=== PATIENT | female | born 1980 | race Caucasian/White ===

== ENCOUNTER 2023-12-06 19:39 | Emergency (ER) | payer MEDICARE, MEDICAID, SELFPAY ==
--- NOTE | ~2023-12-06 | XR_ITS ---
EXAMINATION: XR HAND/WRIST, LEFT CLINICAL INFORMATION: Pain, decreased range of motion. COMPARISON: None TECHNIQUE: PA, lateral, and oblique views of the left hand and wrist. FINDINGS: The bones and soft tissues are normal. No fracture. Alignment is anatomic. Joint spaces are maintained. No erosions or soft tissue calcifications. XR/XR hand wrist LT IMPRESSION: Normal radiographs of the hand and wrist.
[2023-12-06 20:19] VITALS: BP 149/98; PULSE 109; RESP 18; O2SAT 96; BMI 27.1
--- NOTE | 2023-12-06 20:20 | ED_ITS ---
HPI - General Adult General Chief complaint: Extremity Problem Stated complaint: L arm pain/No inj Time Seen by Provider: 12/06/23 22:16 Source: patient, RN notes reviewed and old records reviewed Mode of arrival: ambulatory Limitations: no limitations History of Present Illness HPI narrative: 43-year-old female presents for evaluation of left wrist and hand pain. 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 ? Related Data Previous Rx's ?Medication ?Instructions ?Recorded gabapentin 300 mg capsule 300 mg PO DAILY #20 caps 12/06/23 naproxen 500 mg tablet 500 mg PO BID #20 tabs 12/06/23 Allergies Allergy/AdvReac Type Severity Reaction Status Date / Time azithromycin Allergy Rash Verified 12/06/23 20:27 Review of Systems 2 Constitutional: Constitutional: Denies body ache(s), Denies chills and Denies fever(s) ENT: Denies sore throat Cardiovascular: Cardiovascular: Denies chest pain and Denies dyspnea Respiratory: Respiratory: Denies cough and Denies dyspnea Gastrointestinal: Gastrointestinal: Denies abdominal pain, Denies nausea and Denies vomiting Musculoskeletal: Musculoskeletal: Reports arthralgias, Reports joint swelling and Reports limited range of motion Integumentary/Breasts: Skin/Breast: Denies rash PMFSH Social History Social History Advance Directives: No Advance Directives Information Provided: No Physical Exam ED Vital Signs: Vital Signs - 24 hr 12/06/23 20:19 12/06/23 22:39 12/06/23 22:58 Temperature 98.7 F 98.7 F Pulse Rate 109 H 89 89 Respiratory Rate 18 18 18 Blood Pressure 149/98 H 113/77 113/77 Pulse Oximetry 96 97 97 Oxygen Delivery Method Room Air Room Air Room Air BMI result Body Mass Index 27.1 Const General: healthy appearing, comfortable, no acute distress, alert and awake Nutritional Appearance: well nourished Orientation/consciousness: patient oriented x3 HENMT Head: Yes normocephalic and Yes atraumatic Eyes Eyelids: Yes eyelids normal Conjunctivae: conjunctivae normal Sclerae: sclerae normal Corneas: corneas normal Pupils: Equal, round and reactive pupils present EOM: EOMs intact bilaterally Neck Neck: Yes full ROM Resp Effort & Inspection: normal respiratory effort, able to speak in complete sentences and not labored Skin General skin exam: elasticity normal Neuro General: patient oriented x3 Cranial nerves: Yes Equal, round and reactive pupils present and Yes Bilaterally intact EOM present Cognition (Neuro): normal cognition Extrem Other: Patient has tenderness to the entire left wrist dorsal and ventral surface. No obvious deformity. Positive Tinel test. She has good range of motion with flexion of all fingers of the left hand. Course Course Course Narrative: This is an RME: Additional HPI, ROS, PE not included below will be deferred to primary provider. Patient is a 43-year-old female reports hx syrinx at C4, melodie danlos syndromepresenting to emergency department for evaluation Pain to left hand/wrist, primarily the ulnar aspect radiating up her arm. Described as severe in nature. Unable to her wrist. at times pain radiates into L shoulder and neck, denies at this time. Also having chest tightness. Pain is unrelieved with acetaminophen/ibuprofen. Denies any injury. Denies any fevers or chills. Reevaluation(s) Reevaluation #1: Patient's workup largely unremarkable, most likely diagnosis is carpal tunnel syndrome. Patient be referred to hand surgery. She will be treated conservatively Time: 23:34 Medications Administered Discontinued Medications Generic Name Dose Route Start Last Admin Trade Name Gurjit PRN Reason Stop Dose Admin Ketorolac Tromethamine 30 mg 12/06/23 22:34 12/06/23 22:56 Ketorolac Tromethamine 30 Mg/Ml Vial IM 12/06/23 22:35 30 mg ONCE ONE Administration Medical Decision Making Medical Decision Making MDM Narrative: 43-year-old female presents for evaluation of left hand and wrist pain. She has a positive Tinel test and a previous history of carpal tunnel. The most likely diagnosis at this time is carpal tunnel. She had an x-ray that showed no osseous abnormalities. There are no skin changes or signs of infectious process. I have a very low suspicion for cardiac disease. She had have a cardiac workup ordered in triage. Her EKG is nonischemic, troponin is negative. Differential Diagnosis Differential Diagnoses: The differential diagnosis associated with the presentation includes Right hand and wrist pain Carpal tunnel Take veins tenosynovitis Gout Hand sprain Fracture Lab Data MDM Lab Attestation statement: I reviewed the patient's lab results. No leukocytosis or anemia. No left shift. No significant electrolyte abnormalities. 12/06/23 20:32 12/06/23 20:32 Labs: Lab Results 12/06/23 Range/Units 20:32 WBC 10.7 (4.8-10.8) X10*3/uL RBC 4.54 (4.20-5.50) X10*6/uL Hgb 13.5 (12.0-16.0) g/dl Hct 39.9 (37.0-47.0) % MCV 87.9 (80.0-98.0) fL MCH 29.7 (27.0-33.0) pg MCHC 33.8 (31.0-35.0) g/dl RDW 12.4 (11.0-16.0) % Plt Count 494 H (160-400) X10*3/uL MPV 8.5 L (9.4-12.3) fL Immature Gran % (Auto) 0.2 (0.0-0.4) % Neut % (Auto) 55.3 (45-73) % Lymph % (Auto) 36.0 (20-40) % [place] % (Auto) 6.6 (2-11) % Eos % (Auto) 1.3 (0-4) % Baso % (Auto) 0.6 (0-2) % Lymph # (Auto) 3.9 (1.2-4.9) X10*3/uL [place] # (Auto) 0.7 (0.1-1.2) X10*3/uL Eos # (Auto) 0.1 (0.0-0.4) X10*3/uL Baso # (Auto) 0.1 (0.0-0.2) X10*3/uL Abs Immat Gran (auto) 0.02 (0.00-0.03) X10*3/uL Absolute Neuts (auto) 5.9 (2.0-8.3) x10*3/uL Absolute Nucleated RBC 0.000 (0.0-0.012) X10*3/uL Nucleated RBC % (auto) 0.0 (0.0-0.2) /100WBC Sodium 137 (135-145) mmol/L Potassium 4.1 (3.3-5.1) mmol/L Chloride 105 (96-108) mmol/L Carbon Dioxide 23 (22-29) mmol/L Anion Gap 13 (12-20) BUN 7 L (9-16) mg/dL Creatinine 0.64 (0.5-1.4) mg/dL Estim Creat Clear Calc 93.9 Estimated GFR > 60 Random Glucose 94 (60-115) mg/dL Calcium 9.1 (8.4-10.2) mg/dL Total Bilirubin 0.2 (0.0-1.0) mg/dL AST 13 (5-31) U/L ALT 8 (0-31) U/L Alkaline Phosphatase 54 (39-117) U/L Troponin I High Sens < 2.7 (<3.5-17.0) ng/L Total Protein 7.5 (6.5-8.0) g/dL Albumin 4.0 (3.5-5.0) g/dL Independent Interpretation I performed an independent interpretation of an: EKG and Plain X-Ray (No obvious fracture of the right hand and wrist) Interpretation: Sinus tachycardia rate of [address] segment changes Radiology Impression Discussion of test interpretation with radiology: I have reviewed the radiologist's reading. Radiologist Impression: IMPRESSION: Normal radiographs of the hand and wrist. Discharge Plan Discharge Clinical Impression: Left hand pain Patient Disposition: Home, Self-Care Instructions: Arthralgia (ED) Additional Instructions: Your workup in the ER did not show any concerning abnormality. Your physical exam is most concerning for carpal tunnel syndrome You may wear the splint as needed/tolerated I recommend that you follow-up with Dr. Antoinette Xiong, hand surgery Use naproxen as needed for pain You may use Gabapentin as needed for nerve pain Prescriptions: New naproxen 500 mg tablet 500 mg PO BID Qty: 20 0RF gabapentin 300 mg capsule 300 mg PO DAILY Qty: 20 0RF Referrals: Antoinette Xiong MD [Physician] - (? carpal tunnel left hand) Interventions: ED Discharge Assessment Last Done: 12/06/23 22:58 Print Language: Colombian
--- NOTE | 2023-12-06 20:26 | ECG_ITS ---
Test Reason : CHEST TIGHTNESS Blood Pressure : / mmHG Vent. Rate : 106 BPM Atrial Rate : 106 BPM P-R Int : 134 ms QRS Dur : 084 ms QT Int : 344 ms P-R-T Axes : 051 -16 072 degrees QTc Int : 456 ms Sinus tachycardia Otherwise normal ECG No previous ECGs available Referred By: Alana Messer Electronically Signed By:Mahamed Jaquez
[2023-12-06 20:38] LABS: MANUAL DIFF FLAG NO
[2023-12-06 20:39] LABS: Basophils Absolute Auto 0.1 X10*3/uL (0.0-0.2); Basophils Percent Auto 0.6 % (0-2); Eosinophils Absolute Auto 0.1 X10*3/uL (0.0-0.4); Eosinophils Percent Auto 1.3 % (0-4); Hematocrit 39.9 % (37.0-47.0); Hemoglobin 13.5 g/dl (12.0-16.0); Imm Gran Abs Auto 0.02 X10*3/uL (0.00-0.03); Imm Gran Pct Auto 0.2 % (0.0-0.4); Lymphocytes Absolute Auto 3.9 X10*3/uL (1.2-4.9); Mean Corpuscular HGB Conc 33.8 g/dl (31.0-35.0); Mean Corpuscular Hemoglobin 29.7 pg (27.0-33.0); Mean Corpuscular Volume 87.9 fL (80.0-98.0); Mean Platelet Volume 8.5 fL (9.4-12.3); Monocytes Absolute Auto 0.7 X10*3/uL (0.1-1.2); Monocytes Percent Auto 6.6 % (2-11); Neutrophils Absolute Auto 5.9 x10*3/uL (2.0-8.3); Neutrophils Percent Auto 55.3 % (45-73); Platelet Count 494 X10*3/uL (160-400); Red Blood Count 4.54 X10*6/uL (4.20-5.50); Red Cell Distribution Width 12.4 % (11.0-16.0); White Blood Count 10.7 X10*3/uL (4.8-10.8)
[2023-12-06 20:54] LABS: Alanine Aminotransferase 8 U/L (0-31); Alkaline Phosphatase 54 U/L (39-117); Anion Gap 13 (12-20); Aspartate Amino Transferase 13 U/L (5-31); Bilirubin Total 0.2 mg/dL (0.0-1.0); Blood Urea Nitrogen 7 mg/dL (9-16); Calcium 9.1 mg/dL (8.4-10.2); Carbon Dioxide 23 mmol/L (22-29); Chloride 105 mmol/L (96-108); Creatinine Clr Calc Pharmacy 93.9; Estimated Glomerular Filt Rate > 60; Glucose Random 94 mg/dL (60-115); Potassium 4.1 mmol/L (3.3-5.1); Sodium 137 mmol/L (135-145); Total Protein 7.5 g/dL (6.5-8.0)
[2023-12-06 21:03] LABS: Troponin-I High Sensitivity < 2.7 ng/L (<3.5-17.0)
[2023-12-06 22:39] VITALS: BP 113/77; PULSE 89; RESP 18; TEMP 37.1; O2SAT 97
[2023-12-06] MEDS: Ketorolac Tromethamine 30 MG/ML VIAL IM (22:56)
[2023-12-06 22:58] VITALS: BP 113/77; PULSE 89; RESP 18; TEMP 37.1; O2SAT 97
--- NOTE | 2023-12-06 23:24 | MHC.EDTECH ---
Wrist splint applied per PA order. Pt tolerated well.
== END 2023-12-06 23:00 | disposition home or self-care (01) ==
PROVIDERS: Nurse Practitioner Family; Emergency Provider Student in an Organized Health Care Education/Training Program
DX: M79.642 Pain in left hand (principal); M25.532 Pain in left wrist
CPT/HCPCS: 36415; 73110; 73130; 80053; 84484; 85025; 93005; 96372; 99284; J1885

== ENCOUNTER → 2023-12-06 20:26 | Outpatient (BNV) | payer MEDICARE, MEDICAID, SELFPAY | PROVIDERS: Emergency Provider Student in an Organized Health Care Education/Training Program; Visit Provider Internal Medicine Cardiovascular Disease | DX: R00.0 Tachycardia, unspecified (principal) | CPT/HCPCS: 93010 ==

== ENCOUNTER 2024-01-15 15:55 | Emergency (ER) | payer MEDICARE, MEDICAID, SELFPAY ==
[2024-01-15 16:03] VITALS: BP 147/93; PULSE 109; RESP 18; TEMP 36.9; O2SAT 97; BMI 25.6
--- NOTE | 2024-01-15 16:05 | ED_ITS ---
HPI - General Adult General Chief complaint: Abdominal Pain Stated complaint: abd hernai/pain with nauseau Time Seen by Provider: 01/15/24 23:17 Source: patient Mode of arrival: ambulatory Limitations: no limitations History of Present Illness ED Provider: dr tamez HPI narrative: Patient's history of ventral hernia for years comes here for pain in the lower abdomen after pushing dry stone few weeks ago no vomiting does have constipation and last good bowel movement was few days ago no fever no chills no urinary complaints has a normal appetite Related Data Previous Rx's ?Medication ?Instructions ?Recorded gabapentin 300 mg capsule 300 mg PO DAILY #20 caps 12/06/23 naproxen 500 mg tablet 500 mg PO BID #20 tabs 12/06/23 bisacodyl 5 mg tablet,delayed 5 mg PO BEDTIME PRN constipation 01/16/24 release (Dulcolax (bisacodyl)) #30 tabs polyethylene glycol 3350 17 17 g PO DAILY #510 grams 01/16/24 gram/dose oral powder (Miralax) Allergies Allergy/AdvReac Type Severity Reaction Status Date / Time azithromycin Allergy Rash Verified 01/15/24 16:06 Review of Systems 2 Review of Systems: Yes all other systems are reviewed and are negative PMFSH Social History Social History Advance Directives: No Advance Directives Information Provided: No Do you have a plan to hurt others: No Plan Patient : No Physical Exam ED Vital Signs: Vital Signs - 24 hr 01/15/24 16:03 01/15/24 22:38 Temperature 98.4 F 97.8 F Pulse Rate 109 H 80 Respiratory Rate 18 16 Blood Pressure 147/93 H 133/76 Pulse Oximetry 97 100 Oxygen Delivery Method Room Air Room Air BMI result Body Mass Index 25.6 Appearance: Alert. Oriented X3. No acute distress. Eyes: No pallor or icterus ENT: Pharynx normal. Oral Mucosa moist Neck: Normal inspection. Neck supple. CVS: Normal heart rate and rhythm. Pulses normal. Respiratory: No respiratory distress. Equal air entry bilateral, no wheezing/rales/rhonchi Abdomen: Soft , deep tenderness left lower abdomen, small ventral hernia containing fat mild tenderness, Bowel sounds are present, no mass palpable, no CVA tenderness Skin: Skin warm and dry. Normal skin color. Normal skin turgor. Extremities: No lower extremity edema. No calf tenderness Neuro: Oriented X 3. No motor deficit. Course Course Course Narrative: RME- 43-year-old female presents for evaluation of abdominal pain, nausea. She reports that she has a known ?hernia. She indicates her epigastric region. She states that 2 weeks ago while pushing down on a trash bag she felt ?a tearing sensation in my midabdomen. ? 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 Plan for workup including labs, EKG. Will defer any potential imaging to primary provider Medical Decision Making Medical Decision Making [facility] Narrative: Patient with small fat containing ventral hernia which been stable in size no significant tenderness noticed. Patient does have deep tenderness in left lower abdomen and does have constipation labs are normal likely the cause patient refused on imaging will discharge patient relax Lab Data [facility] Lab Attestation statement: I reviewed the patient's lab results. 01/15/24 16:39 01/15/24 16:39 Labs: Lab Results 01/15/24 01/15/24 Range/Units 16:39 18:29 WBC 9.0 (4.8-10.8) X10*3/uL RBC 4.57 (4.20-5.50) X10*6/uL Hgb 13.9 (12.0-16.0) g/dl Hct 41.6 (37.0-47.0) % MCV 91.0 (80.0-98.0) fL MCH 30.4 (27.0-33.0) pg MCHC 33.4 (31.0-35.0) g/dl RDW 12.6 (11.0-16.0) % Plt Count 493 H (160-400) X10*3/uL MPV 8.7 L (9.4-12.3) fL Immature Gran % (Auto) 0.2 (0.0-0.4) % Neut % (Auto) 46.0 (45-73) % Lymph % (Auto) 43.5 H (20-40) % [place] % (Auto) 7.9 (2-11) % Eos % (Auto) 1.8 (0-4) % Baso % (Auto) 0.0 (0-2) % Lymph # (Auto) 3.9 (1.2-4.9) X10*3/uL [place] # (Auto) 0.7 (0.1-1.2) X10*3/uL Eos # (Auto) 0.2 (0.0-0.4) X10*3/uL Baso # (Auto) 0.1 (0.0-0.2) X10*3/uL Abs Immat Gran (auto) 0.02 (0.00-0.03) X10*3/uL Absolute Neuts (auto) 4.1 (2.0-8.3) x10*3/uL Absolute Nucleated RBC 0.000 (0.0-0.012) X10*3/uL Nucleated RBC % (auto) 0.0 (0.0-0.2) /100WBC PT 10.3 L (11.1-13.3) SEC INR 0.8 L (0.9-1.1) Sodium 139 (135-145) mmol/L Potassium 4.5 (3.3-5.1) mmol/L Chloride 107 (96-108) mmol/L Carbon Dioxide 22 (22-29) mmol/L Anion Gap 15 (12-20) BUN 12 (9-16) mg/dL Creatinine 0.78 (0.5-1.4) mg/dL Estim Creat Clear Calc 78.2 Estimated GFR > 60 Random Glucose 95 (60-115) mg/dL Calcium 9.5 (8.4-10.2) mg/dL Total Bilirubin 0.2 (0.0-1.0) mg/dL AST 13 (5-31) U/L ALT 9 (0-31) U/L Alkaline Phosphatase 54 (39-117) U/L Troponin I High Sens < 2.7 (<3.5-17.0) ng/L Total Protein 7.6 (6.5-8.0) g/dL Albumin 4.0 (3.5-5.0) g/dL Lipase 21 (8-78) U/L Beta HCG, Quant < 2 mIU/mL Urine Color Dark Yellow Urine Appearance Clear Urine pH 5.0 (5.0-9.0) Ur Specific [place] >= 1.030 H (1.005-1.025) Urine Protein Trace (Neg-Trace) mg/dL Urine Glucose (UA) Negative (Negative) mg/dL Urine Ketones Trace (Negative) mg/dL Urine Blood Negative (Negative) Urine Nitrite Negative (Negative) Ur Leukocyte Esterase Negative (Negative) Urine RBC 11-20 H (0-2) /HPF Urine WBC 0-5 (0-5) /HPF Ur Squamous Epith Cells 0-2 (0-2) /HPF Urine Bacteria None Seen (None Seen) Hyaline Casts 0-2 (0-2) /LPF Discharge Plan Discharge Clinical Impression: Constipation, Abdominal pain Patient Disposition: Home, Self-Care Instructions: Constipation (ED), Ventral Hernia (ED) Additional Instructions: Drink plenty of fluids Take medicine for constipation as prescribed Avoid lifting heavy weight Follow-up with surgery for hernia repair Report to ER if worsening of the swelling or pain in the hernia site Prescriptions: New polyethylene glycol 3350 [Miralax] 17 gram/dose powder 17 g PO DAILY Qty: 510 0RF bisacodyl [Dulcolax (bisacodyl)] 5 mg tablet,delayed release (DR/EC) 5 mg PO BEDTIME PRN (Reason: constipation) Qty: 30 0RF No Action naproxen 500 mg tablet 500 mg PO BID Qty: 20 0RF gabapentin 300 mg capsule 300 mg PO DAILY Qty: 20 0RF Referrals: Bryson Flores MD [Physician] - 2 weeks Print Language: Haitian
--- NOTE | 2024-01-15 16:05 | ECG_ITS ---
Test Reason : ABD PAIN Blood Pressure : / mmHG Vent. Rate : 093 BPM Atrial Rate : 093 BPM P-R Int : 120 ms QRS Dur : 076 ms QT Int : 360 ms P-R-T Axes : 065 053 065 degrees QTc Int : 447 ms Normal sinus rhythm Normal ECG When compared with ECG of 06-DEC-2023 20:28, No significant change was found Referred By: Juan Major Electronically Signed By:SIDNEY HINTON MD
[2024-01-15 16:44] LABS: MANUAL DIFF FLAG NO
[2024-01-15 17:22] LABS: Hematocrit 41.6 % (37.0-47.0); Hemoglobin 13.9 g/dl (12.0-16.0); Mean Corpuscular HGB Conc 33.4 g/dl (31.0-35.0); Mean Corpuscular Hemoglobin 30.4 pg (27.0-33.0); Red Blood Count 4.57 X10*6/uL (4.20-5.50)
[2024-01-15 17:23] LABS: Basophils Absolute Auto 0.1 X10*3/uL (0.0-0.2); Eosinophils Absolute Auto 0.2 X10*3/uL (0.0-0.4); Eosinophils Percent Auto 1.8 % (0-4); Imm Gran Abs Auto 0.02 X10*3/uL (0.00-0.03); Imm Gran Pct Auto 0.2 % (0.0-0.4); Lymphocytes Absolute Auto 3.9 X10*3/uL (1.2-4.9); Lymphocytes Percent Auto 43.5 % (20-40); Mean Platelet Volume 8.7 fL (9.4-12.3); Monocytes Absolute Auto 0.7 X10*3/uL (0.1-1.2); Monocytes Percent Auto 7.9 % (2-11); Neutrophils Absolute Auto 4.1 x10*3/uL (2.0-8.3); Platelet Count 493 X10*3/uL (160-400); Red Cell Distribution Width 12.6 % (11.0-16.0)
[2024-01-15 17:45] LABS: INTERNATIONAL NORM RATIO 0.8 (0.9-1.1); Prothrombin Time 10.3 SEC (11.1-13.3)
[2024-01-15 17:48] LABS: Alanine Aminotransferase 9 U/L (0-31); Alkaline Phosphatase 54 U/L (39-117); Anion Gap 15 (12-20); Aspartate Amino Transferase 13 U/L (5-31); Bilirubin Total 0.2 mg/dL (0.0-1.0); Blood Urea Nitrogen 12 mg/dL (9-16); Calcium 9.5 mg/dL (8.4-10.2); Carbon Dioxide 22 mmol/L (22-29); Chloride 107 mmol/L (96-108); Creatinine Clr Calc Pharmacy 78.2; Estimated Glomerular Filt Rate > 60; Glucose Random 95 mg/dL (60-115); HCG Quantitative < 2 mIU/mL; Lipase 21 U/L (8-78); Potassium 4.5 mmol/L (3.3-5.1); Sodium 139 mmol/L (135-145); Total Protein 7.6 g/dL (6.5-8.0)
[2024-01-15 17:49] LABS: Troponin-I High Sensitivity < 2.7 ng/L (<3.5-17.0)
[2024-01-15 18:59] LABS: Appearance Urine Clear; Color Urine Dark Yellow; Glucose Urine UA Negative (Negative); Leukocyte Esterase Urine Negative (Negative); Nitrite Urine Negative (Negative); Specific Gravity - Urine >= 1.030 (1.005-1.025); Urine Blood Negative (Negative); Urine Ketones Trace mg/dL (Negative); Urine Protein Trace mg/dL (Neg-Trace)
[2024-01-15 19:13] LABS: Bacteria Urine None Seen (None Seen); Hyaline Casts Urine 0-2 /LPF (0-2); Squamous Epithelial Cell Urine 0-2 /HPF (0-2); WBC Urine 0-5 /HPF (0-5)
[2024-01-15 22:38] VITALS: BP 133/76; PULSE 80; RESP 16; TEMP 36.6; O2SAT 100
[2024-01-16 00:09] VITALS: BP 130/82; PULSE 86; RESP 16; TEMP 36.8; O2SAT 99
== END 2024-01-16 00:10 | disposition home or self-care (01) ==
PROVIDERS: Physician Assistant; Emergency Provider Internal Medicine
DX: R10.30 Lower abdominal pain, unspecified (principal); K59.00 Constipation, unspecified
CPT/HCPCS: 36415; 80053; 81001; 83690; 84484; 84702; 85025; 85610; 93005; 99283; 99284

== ENCOUNTER → 2024-01-15 16:05 | Outpatient (BNV) | payer MEDICARE, MEDICAID, SELFPAY | PROVIDERS: Emergency Provider Internal Medicine; Visit Provider Internal Medicine Cardiovascular Disease | DX: R10.9 Unspecified abdominal pain (principal) | CPT/HCPCS: 93010 ==

== ENCOUNTER 2024-09-21 19:40 | Emergency (ER) | payer MEDICARE, MEDICAID, SELFPAY ==
--- NOTE | ~2024-09-21 | CT_ITS ---
CLINICAL HISTORY: blurry vision CT head without contrast Comparison: None Findings: No intra-axial mass, midline shift, hydrocephalus, or acute hemorrhage. No significant atrophy-like change or white matter disease. The visualized paranasal sinuses and mastoid air cells are normal. The orbits are within normal limits. There is no acute fracture. IMPRESSION: 1. No acute intracranial findings. This document has been electronically signed by: Eder Lew MD on 09/21/2024 21:48:35
--- NOTE | ~2024-09-21 | XR_ITS ---
CLINICAL HISTORY: blurry vision 2 view chest x-ray. Comparison: None Findings: Lungs are clear without acute infiltrates. No pneumothorax. Heart size normal. No acute bony abnormalities. Impression: No acute processes This document has been electronically signed by: Sarabjit Brown MD on 09/21/2024 21:09:45
[2024-09-21 19:45] VITALS: BP 146/91; PULSE 118; RESP 16; TEMP 37.4; O2SAT 98; BMI 24.4
--- NOTE | 2024-09-21 19:49 | ED_ITS ---
HPI - General Adult General Chief complaint: Dizziness Stated complaint: congested cough, sob antibiotics not working Time Seen by Provider: 09/21/24 22:42 Source: patient Limitations: no limitations History of Present Illness ED Provider: Meena Rich PA-C Related Data Previous Rx's ?Medication ?Instructions ?Recorded gabapentin 300 mg capsule 300 mg PO DAILY #20 caps 12/06/23 naproxen 500 mg tablet 500 mg PO BID #20 tabs 12/06/23 bisacodyl 5 mg tablet,delayed 5 mg PO BEDTIME PRN constipation 01/16/24 release (Dulcolax (bisacodyl)) #30 tabs polyethylene glycol 3350 17 17 g PO DAILY #510 grams 01/16/24 gram/dose oral powder (Miralax) meclizine 25 mg tablet 25 mg PO TID PRN dizziness #10 tabs 09/22/24 Allergies Allergy/AdvReac Type Severity Reaction Status Date / Time azithromycin Allergy Rash Verified 09/21/24 19:46 [facility] Social History Social History Smoked in Last 30 Days: Yes Use of substances other than those prescribed or required for medical reasons: No Advance Directives: No Advance Directives Information Provided: No Do you have a plan to hurt others: No Plan Physical Exam ED Vital Signs: Vital Signs - 24 hr 09/21/24 19:45 09/21/24 22:35 Temperature 99.4 F 101.7 F H Pulse Rate 118 H 109 H Respiratory Rate 16 20 Blood Pressure 146/91 H 115/77 Pulse Oximetry 98 97 Oxygen Delivery Method Room Air Room Air BMI result Body Mass Index 24.4 Course Course Course Narrative: RME performed by Shefali Canales PA-C. Patient is a 44 year old assigned female at presenting to the emergency department with blurry vision / vision changes, cough, and feeling generally unwell. Detailed physical exam and review of systems are deferred to the straw hat brim raiser operator. EKG, labs, imaging, and swabs ordered. Patient placed back in the waiting room pending room availability and results. Medications Administered Discontinued Medications Generic Name Dose Route Start Last Admin Trade Name Freq PRN Reason Stop Dose Admin Sodium Chloride 1,000 mls @ 999 mls/hr 09/21/24 23:15 01/27/25 23:34 Ns IV 09/22/24 00:15 999 mls/hr .Q1H1M BRISA Administration Ketorolac Tromethamine 15 mg 09/21/24 23:13 09/21/24 23:40 Ketorolac Tromethamine 15 Mg/Ml Vial IVPUSH 09/21/24 23:14 15 mg ONCE ONE Administration Meclizine HCl 25 mg 09/21/24 23:23 09/21/24 23:40 Meclizine Hcl 25 Mg Tablet PO 09/21/24 23:24 25 mg ONCE ONE Administration Medical Decision Making Lab Data 09/21/24 20:15 09/21/24 20:15 Labs: Lab Results 09/21/24 Range/Units 20:15 WBC 9.5 (4.8-10.8) X10*3/uL RBC 4.28 (4.20-5.50) X10*6/uL Hgb 12.9 (12.0-16.0) g/dl Hct 38.2 (37.0-47.0) % MCV 89.3 (80.0-98.0) fL MCH 30.1 (27.0-33.0) pg MCHC 33.8 (31.0-35.0) g/dl RDW 12.7 (11.0-16.0) % Plt Count 439 H (160-400) X10*3/uL MPV 8.5 L (9.4-12.3) fL Immature Gran % (Auto) 0.3 (0.0-0.4) % Neut % (Auto) 76.5 H (45-73) % Lymph % (Auto) 14.3 L (20-40) % [place] % (Auto) 8.2 (2-11) % Eos % (Auto) 0.3 (0-4) % Baso % (Auto) 0.4 (0-2) % Lymph # (Auto) 1.4 (1.2-4.9) X10*3/uL [place] # (Auto) 0.8 (0.1-1.2) X10*3/uL Eos # (Auto) 0.0 (0.0-0.4) X10*3/uL Baso # (Auto) 0.0 (0.0-0.2) X10*3/uL Abs Immat Gran (auto) 0.03 (0.00-0.03) X10*3/uL Absolute Neuts (auto) 7.3 (2.0-8.3) x10*3/uL Absolute Nucleated RBC 0.000 (0.0-0.012) X10*3/uL Nucleated RBC % (auto) 0.0 (0.0-0.2) /100WBC Sodium 135 (135-145) mmol/L Potassium 3.4 D (3.3-5.1) mmol/L Chloride 106 (96-108) mmol/L Carbon Dioxide 22 (22-29) mmol/L Anion Gap 10 L (12-20) BUN 10 (9-16) mg/dL Creatinine 0.73 (0.5-1.4) mg/dL Estim Creat Clear Calc 80.9 Estimated GFR > 60 Random Glucose 86 (60-115) mg/dL Calcium 8.4 D (8.4-10.2) mg/dL Magnesium 1.5 L (1.6-2.6) mg/dL Total Bilirubin 0.2 (0.0-1.0) mg/dL AST 19 (5-31) U/L ALT 12 (0-31) U/L Alkaline Phosphatase 59 (39-117) U/L Troponin I High Sens < 2.7 (<3.5-17.0) ng/L Total Protein 7.6 (6.5-8.0) g/dL Albumin 3.9 (3.5-5.0) g/dL Beta HCG, Quant < 2 mIU/mL Urine Color Yellow Urine Appearance Clear Urine pH 5.5 (5.0-9.0) Ur Specific [place] 1.025 (1.005-1.025) Urine Protein Negative (Neg-Trace) mg/dL Urine Glucose (UA) Negative (Negative) mg/dL Urine Ketones Trace (Negative) mg/dL Urine Blood Small (1+) H (Negative) Urine Nitrite Negative (Negative) Ur Leukocyte Esterase Negative (Negative) Urine RBC >20 H (0-2) /HPF Urine WBC 0-5 (0-5) /HPF Ur Squamous Epith Cells 0-2 (0-2) /HPF Urine Bacteria None Seen (None Seen) Hyaline Casts 0-2 (0-2) /LPF Influenza Type A (PCR) NEGATIVE (Negative) Influenza Type B (PCR) NEGATIVE (Negative) RSV RNA Qual (PCR) NEGATIVE (Negative) SARS-CoV-2 RNA (RT-PCR) POSITIVE A (Negative) Discharge Plan Discharge Clinical Impression: Dizziness, SARS-CoV-2 positive Patient Disposition: Home, Self-Care Instructions: Vertigo (ED), COVID-19 (Coronavirus Disease 2019) (ED) Additional Instructions: You were found to test positive for COVID. See home care instructions. The chest x-ray and the remainder of your labs were normal. The CT scan of your brain was normal. In regard to your dizziness, you have fluid within the inner ear triggering vertigo symptoms. See home care instructions. Use the meclizine as needed for dizziness. Use [id number] Zyrtec daily for a month, this will help alleviate the congestion within the inner ear, which is causing your dizziness. Follow up with your primary care provider as needed. Prescriptions: New meclizine 25 mg tablet 25 mg PO TID PRN (Reason: dizziness) Qty: 10 0RF No Action naproxen 500 mg tablet 500 mg PO BID Qty: 20 0RF gabapentin 300 mg capsule 300 mg PO DAILY Qty: 20 0RF polyethylene glycol 3350 [Miralax] 17 gram/dose powder 17 g PO DAILY Qty: 510 0RF bisacodyl [Dulcolax (bisacodyl)] 5 mg tablet,delayed release (DR/EC) 5 mg PO BEDTIME PRN (Reason: constipation) Qty: 30 0RF Stand Alone Forms: Work/School Release Print Language: Bhutanese
--- NOTE | 2024-09-21 19:50 | ECG_ITS ---
Test Reason : WEAKNESS Blood Pressure : */* mmHG Vent. Rate : 113 BPM Atrial Rate : 113 BPM P-R Int : 132 ms QRS Dur : 88 ms QT Int : 336 ms P-R-T Axes : 43 -26 70 degrees QTcB Int : 460 ms Sinus tachycardia Otherwise normal ECG When compared with ECG of 15-Jan-2024 16:42, QRS axis Shifted left Referred By: Shefali Canales Electronically Signed By: ANTHONY DARLING
[2024-09-21 20:21] LABS: MANUAL DIFF FLAG NO
[2024-09-21 20:22] LABS: Basophils Percent Auto 0.4 % (0-2); Eosinophils Percent Auto 0.3 % (0-4); Hematocrit 38.2 % (37.0-47.0); Hemoglobin 12.9 g/dl (12.0-16.0); Imm Gran Abs Auto 0.03 X10*3/uL (0.00-0.03); Imm Gran Pct Auto 0.3 % (0.0-0.4); Lymphocytes Absolute Auto 1.4 X10*3/uL (1.2-4.9); Lymphocytes Percent Auto 14.3 % (20-40); Mean Corpuscular HGB Conc 33.8 g/dl (31.0-35.0); Mean Corpuscular Hemoglobin 30.1 pg (27.0-33.0); Mean Corpuscular Volume 89.3 fL (80.0-98.0); Mean Platelet Volume 8.5 fL (9.4-12.3); Monocytes Absolute Auto 0.8 X10*3/uL (0.1-1.2); Monocytes Percent Auto 8.2 % (2-11); Neutrophils Absolute Auto 7.3 x10*3/uL (2.0-8.3); Neutrophils Percent Auto 76.5 % (45-73); Platelet Count 439 X10*3/uL (160-400); Red Blood Count 4.28 X10*6/uL (4.20-5.50); Red Cell Distribution Width 12.7 % (11.0-16.0); White Blood Count 9.5 X10*3/uL (4.8-10.8)
[2024-09-21 20:23] LABS: Appearance Urine Clear; Color Urine Yellow; Glucose Urine UA Negative (Negative); Leukocyte Esterase Urine Negative (Negative); Nitrite Urine Negative (Negative); PH 5.5 (5.0-9.0); Specific Gravity - Urine 1.025 (1.005-1.025); UMIC TRIGGER UACC YES; Urine Blood Small (1+) (Negative); Urine Ketones Trace mg/dL (Negative); Urine Protein Negative (Neg-Trace)
[2024-09-21 20:26] LABS: Bacteria Urine None Seen (None Seen); Hyaline Casts Urine 0-2 /LPF (0-2); RBC Urine >20 /HPF (0-2); Squamous Epithelial Cell Urine 0-2 /HPF (0-2); WBC Urine 0-5 /HPF (0-5)
[2024-09-21 20:50] LABS: Alanine Aminotransferase 12 U/L (0-31); Albumin Level 3.9 g/dL (3.5-5.0); Alkaline Phosphatase 59 U/L (39-117); Anion Gap 10 (12-20); Aspartate Amino Transferase 19 U/L (5-31); Bilirubin Total 0.2 mg/dL (0.0-1.0); Blood Urea Nitrogen 10 mg/dL (9-16); Calcium 8.4 mg/dL (8.4-10.2); Carbon Dioxide 22 mmol/L (22-29); Chloride 106 mmol/L (96-108); Creatinine Clr Calc Pharmacy 80.9; Estimated Glomerular Filt Rate > 60; Glucose Random 86 mg/dL (60-115); HCG Quantitative < 2 mIU/mL; Magnesium 1.5 mg/dL (1.6-2.6); Potassium 3.4 mmol/L (3.3-5.1); Sodium 135 mmol/L (135-145); Total Protein 7.6 g/dL (6.5-8.0); Troponin-I High Sensitivity < 2.7 ng/L (<3.5-17.0)
[2024-09-21 20:58] LABS: Influenza A PCR NEGATIVE (Negative); Influenza B PCR NEGATIVE (Negative); Resp Syncy Virus RNA Qual PCR NEGATIVE (Negative); SARS COV2 PCR INHOUSE POSITIVE (Negative)
[2024-09-21 22:35] VITALS: BP 115/77; PULSE 109; RESP 20; TEMP 38.7; O2SAT 97
--- NOTE | 2024-09-21 22:43 | PC.NURSE ---
Pt a&ox4, no signs of distress. Pt reports 6/10 cp and sore throat Pt reports visual changes and dizziness. Pt assisted to the restroom. Plan of care ongoing.
[2024-09-21] MEDS: 0.9 % Sodium Chloride 1,000 ML 999 ML IV (23:34)
[2024-09-21] MEDS: Meclizine HCl 25 MG TABLET PO (23:40)
[2024-09-21] MEDS: Ketorolac Tromethamine 15 MG/ML VIAL IVPUSH (23:40)
--- NOTE | 2024-09-21 23:44 | PC.NURSE ---
Pt medicated per [facility] Plan of care ongoing.
[2024-09-22 00:23] VITALS: RESP 18
[2024-09-22 01:12] VITALS: BP 94/61; PULSE 102; RESP 18; TEMP 37.5; O2SAT 100
[2024-09-22 01:21] VITALS: BP 94/61; PULSE 102; RESP 18; TEMP 37.5; O2SAT 100
== END 2024-09-22 01:22 | disposition home or self-care (01) ==
PROVIDERS: Physician Assistant Medical; Emergency Provider Emergency Medicine; PCP Internal Medicine
DX: U07.1 COVID-19 (principal); R42 Dizziness and giddiness; R06.02 Shortness of breath
CPT/HCPCS: 0241U; 70450; 71046; 80053; 81001; 83735; 84484; 84702; 85025; 93005; 96361; 96374; 99284; 99285; J1885

== ENCOUNTER → 2024-09-21 19:50 | Outpatient (BNV) | payer MEDICARE, MEDICAID, SELFPAY | PROVIDERS: Emergency Provider Emergency Medicine; PCP Internal Medicine; Visit Provider Internal Medicine | DX: R00.0 Tachycardia, unspecified (principal) | CPT/HCPCS: 93010 ==